=== PATIENT | male | born 1955 | race Caucasian/White ===

== ENCOUNTER 2022-06-27 10:55 | Inpatient (IN) | payer MEDICAID ==
[~2022-06-27] VITALS: Ht 170.2 cm; Wt 79.1 kg
[2022-06-27] MEDS ORDERED: NICARDIPINE 40MG/200ML PREMIX 200 ML IV SCH (11:39)
[2022-06-27] MEDS ORDERED: LEVETIRACETAM 500MG PREMIX 100 ML IV SCH (11:45)
[2022-06-27] MEDS ORDERED: IOHEXOL-350 100 ML BOTTLE ONE (11:53)
[2022-06-27 12:14] LABS: HEMATOCRIT. 44.8 % (42.0-52.0); HEMOGLOBIN. 15.6 g/dL (14.0-18.0); MEAN CORPUSCULAR HEMOGLOBIN 30.4 pg (28.0-32.0); MEAN CORPUSCULAR VOLUME 87.2 fL (80.0-94.0); MEAN PLATELET VOLUME 9.8 fl (7.4-10.4); PLATELET 197 x1000/uL (130-400); RED BLOOD CELL COUNT 5.13 mill/uL (4.7-6.1); RED CELL DISTRIBUTION WIDTH 13.5 % (11.6-14.6)
[2022-06-27 12:45] LABS: CHLORIDE 105 mEq/L (98-107)
[2022-06-27 12:59] LABS: PLATELET ESTIMATE NORMAL
[2022-06-27] MEDS ORDERED: MORPHINE SULFATE 2 MG/ML CPJ (NOT FOR IM USE) IV PRN (13:00)
[2022-06-27] MEDS ORDERED: NALOXONE HCL 0.4MG/ML VIAL IV PRN (13:30)
[2022-06-27 13:55] LABS: CREATINE KINASE 2775 IU/L (39-308)
[2022-06-27 14:00] LABS: ETHANOL BLOOD < 10 mg/dL
[2022-06-27] MEDS ORDERED: DEXT 5%/LACTATED RINGERS 1,000 ML IV SCH (14:00)
[2022-06-27 14:48] LABS: INR 1.1; PROTHROMBIN TIME 11.4 sec (9.6-11.0)
[2022-06-27] MEDS ORDERED: NITROGLYCERIN 0.4MG TABLET SL SL PRN (16:15)
[2022-06-27] MEDS ORDERED: ONDANSETRON HCL 4MG/2ML INJ IV PRN (16:15)
[2022-06-27] MEDS ORDERED: IPRATROPIUM/ALBUTEROL 0.5-3(2.5)MG/3ML NEB NEB PRN (16:15)
[2022-06-27] MEDS ORDERED: ACETAMINOPHEN 325MG TABLET PO PRN ×2 (16:15)
[2022-06-27 16:59] LABS: CLARITY URINE CLEAR (CLEAR); COLOR URINE YELLOW (YELLOW); KETONES URINE NEGATIVE (NEGATIVE); LEUKOCYTE ESTERASE URINE NEGATIVE (NEGATIVE); NITRITE URINE NEGATIVE (NEGATIVE); OCCULT BLOOD URINE TRACE (NEGATIVE); PROTEIN URINE TRACE (NEGATIVE); SPECIFIC GRAVITY URINE 1.081 (1.005-1.030)
[2022-06-27 17:36] LABS: T4 FREE 0.91 ng/dL (0.76-1.46)
[2022-06-27 17:57] LABS: VITAMIN B12 SERUM 465 pg/mL (211-911)
[2022-06-27 18:13] LABS: *AMPHETAMINES SCREEN URINE NEGATIVE (NEGATIVE); *BARBITURATES SCREEN URINE NEGATIVE (NEGATIVE); *BENZODIAZEPINES SCREEN URINE NEGATIVE (NEGATIVE); *COCAINE SCREEN URINE PRESUMTIVE POSITIVE (NEGATIVE); CANNABINOID URINE SCREEN NEGATIVE (NEGATIVE); METHADONE URINE SCREEN NEGATIVE (NEGATIVE); OPIATES URINE SCREEN NEGATIVE (NEGATIVE); PHENCYCLIDINE URINE SCREEN NEGATIVE (NEGATIVE)
[2022-06-27] MEDS: DEXAMETHASONE 4MG/ML 1ML VIAL IV SCH (20:00)
[2022-06-27] MEDS: DEXT 5%/LACTATED RINGERS 1,000 ML IV SCH (20:41)
[2022-06-27] MEDS: LEVETIRACETAM 500MG PREMIX 100 ML IV SCH (23:30)
[2022-06-28] VITALS (35 sets, daily range): BP systolic 99–161; BP diastolic 53–101
[2022-06-28 00:45] LABS: CREATINE KINASE MB FRACTION 10.4 ng/mL (0.5-3.6)
[2022-06-28] MEDS: DEXAMETHASONE 4MG/ML 1ML VIAL IV SCH ×4 (04:00→17:01)
[2022-06-28] MEDS: DEXT 5%/LACTATED RINGERS 1,000 ML IV SCH ×2 (04:21→17:01)
[2022-06-28 05:24] LABS: HEMATOCRIT. 41.7 % (42.0-52.0); HEMOGLOBIN. 14.3 g/dL (14.0-18.0); MEAN CORPUSCULAR HEMOGLOBIN 30.3 pg (28.0-32.0); MEAN PLATELET VOLUME 9.7 fl (7.4-10.4); PLATELET 165 x1000/uL (130-400); RED BLOOD CELL COUNT 4.74 mill/uL (4.7-6.1); RED CELL DISTRIBUTION WIDTH 13.4 % (11.6-14.6)
[2022-06-28 05:38] LABS: CHLORIDE 110 mEq/L (98-107)
[2022-06-28 05:48] LABS: PHOSPHORUS 2.8 mg/dL (2.5-4.9)
[2022-06-28 05:50] LABS: CREATINE KINASE MB FRACTION 8.1 ng/mL (0.5-3.6)
[2022-06-28] MEDS: PANTOPRAZOLE SODIUM 40 MG/VIAL IV SCH (09:08)
[2022-06-28] MEDS: LEVETIRACETAM 500MG PREMIX 100 ML IV SCH ×2 (09:08→21:00)
[2022-06-28 11:16] LABS: PLATELET ESTIMATE NORMAL
[2022-06-28] MEDS ORDERED: NICARDIPINE 100 MG in SODIUM CHLORIDE 0.9% 60 ML IV PRN ×4 (12:00)
[2022-06-29] VITALS (21 sets, daily range): BP systolic 92–156; BP diastolic 57–105
[2022-06-29] MEDS: DEXAMETHASONE 4MG/ML 1ML VIAL IV SCH ×4 (00:57→19:11)
[2022-06-29] MEDS: DEXT 5%/LACTATED RINGERS 1,000 ML IV SCH (08:24)
[2022-06-29] MEDS: LEVETIRACETAM 500MG PREMIX 100 ML IV SCH ×2 (08:24→21:51)
[2022-06-29] MEDS: PANTOPRAZOLE SODIUM 40 MG/VIAL IV SCH (08:26)
[2022-06-29] MEDS ORDERED: CLONIDINE 0.1MG TABLET PO PRN (08:30)
[2022-06-29] MEDS: AMLODIPINE 2.5MG TABLET PO SCH (21:51)
[2022-06-30] VITALS (8 sets, daily range): BP systolic 132–174; BP diastolic 71–90
[2022-06-30] MEDS: PANTOPRAZOLE SODIUM 40 MG/VIAL IV SCH (09:17)
[2022-06-30] MEDS: AMLODIPINE 2.5MG TABLET PO SCH ×2 (09:21→22:19)
[2022-06-30] MEDS: LEVETIRACETAM 500MG PREMIX 100 ML IV SCH ×2 (09:21→22:19)
[2022-06-30] MEDS ORDERED: LOSARTAN POTASSIUM 100 MG TABLET PO SCH ×3 (10:15→10:30)
[2022-06-30] MEDS: LOSARTAN POTASSIUM 100 MG TABLET PO SCH (12:07)
[2022-07-01] VITALS: BP 97/55
[2022-07-01 04:00] VITALS: BP 100/59
[2022-07-01 08:00] VITALS: BP 130/74
[2022-07-01] MEDS: LOSARTAN POTASSIUM 100 MG TABLET PO SCH (09:07)
[2022-07-01] MEDS: AMLODIPINE 2.5MG TABLET PO SCH ×2 (09:07→20:52)
[2022-07-01] MEDS: LEVETIRACETAM 500MG PREMIX 100 ML IV SCH ×2 (09:07→20:52)
[2022-07-01] MEDS: PANTOPRAZOLE SODIUM 40 MG/VIAL IV SCH (09:07)
[2022-07-01 12:00] VITALS: BP 131/67
[2022-07-01 16:00] VITALS: BP 130/70
[2022-07-01 20:00] VITALS: BP 118/70
[2022-07-02] VITALS: BP 120/80
[2022-07-02 04:00] VITALS: BP 116/68
[2022-07-02 08:00] VITALS: BP 130/71
[2022-07-02] MEDS: LEVETIRACETAM 500MG PREMIX 100 ML IV SCH ×2 (08:55→20:12)
[2022-07-02] MEDS: LOSARTAN POTASSIUM 100 MG TABLET PO SCH (08:55)
[2022-07-02] MEDS: PANTOPRAZOLE SODIUM 40 MG/VIAL IV SCH (08:56)
[2022-07-02] MEDS: AMLODIPINE 2.5MG TABLET PO SCH ×2 (08:56→20:12)
[2022-07-02 12:00] VITALS: BP 129/63
[2022-07-02 16:00] VITALS: BP 141/72
[2022-07-02 20:00] VITALS: BP 139/79
[2022-07-03] VITALS: BP 106/64
[2022-07-03 04:00] VITALS: BP 116/71
[2022-07-03 08:44] VITALS: BP 140/89
[2022-07-03] MEDS: LEVETIRACETAM 500MG PREMIX 100 ML IV SCH (08:46)
[2022-07-03] MEDS: PANTOPRAZOLE SODIUM 40 MG/VIAL IV SCH (08:46)
[2022-07-03] MEDS: AMLODIPINE 2.5MG TABLET PO SCH (08:46)
[2022-07-03] MEDS: LOSARTAN POTASSIUM 100 MG TABLET PO SCH (08:46)
[2022-07-03] MEDS ORDERED: KEPP500 MT (08:52)
[2022-07-03] MEDS ORDERED: AMLO2.5T45 PO (08:52)
[2022-07-03] MEDS ORDERED: LOSA100T3 PO (08:52)
[2022-07-03] MEDS ORDERED: ATOR10TA PO (08:52)
[2022-07-03 09:27] VITALS: BP 140/89
[2022-07-03] MEDS ORDERED: ATORVASTATIN CALCIUM 10MG TABLET PO SCH (21:00)
== END 2022-07-03 12:45 | disposition home or self-care (01) | DRG 44 ==
LOC: ER 10:55 → MICUSO 13:33 → EDBEDREQTM 13:36 → EDBEDREQ 13:36 → MICUNO 06-28 15:43 → 8WST 06-29 17:10
PROVIDERS: ADMIT Internal Medicine; ATTEND Internal Medicine
DX: I62.9 Nontraumatic intracranial hemorrhage, unspecified (principal); M62.82 Rhabdomyolysis; G81.94 Hemiplegia, unspecified affecting left nondominant side; K74.60 Unspecified cirrhosis of liver; I10 Essential (primary) hypertension; I16.1 Hypertensive emergency; R74.01 Elevation of levels of liver transaminase levels; F14.10 Cocaine abuse, uncomplicated; E78.5 Hyperlipidemia, unspecified; D72.829 Elevated white blood cell count, unspecified; Z20.822 Contact with and (suspected) exposure to COVID-19
CPT/HCPCS: 36415; 70496; 70498; 71045; 80053; 80061; 80305; 80320; 81003; 82550; 82553; 82607; 82746; 83036; 83540; 83550; 83735; 84100; 84439; 84443; 84484; 85025; 87426; 93005; 93306; 93970; 97162; 97166; 97530; 99291; C9113; J1100; J1953; J3490; J7050; Q9967; G0480